=== PATIENT | male | born 1995 | race African-American/Black ===

== ENCOUNTER 2019-08-04 02:27 | Emergency (ER) | payer SELFPAY ==
[~2019-08-04] VITALS: Ht 185.4 cm; Wt 72.1 kg
[2019-08-04 05:50] LABS: *BENZODIAZEPINES SCREEN URINE NEGATIVE (NEGATIVE); *COCAINE SCREEN URINE NEGATIVE (NEGATIVE); METHADONE URINE SCREEN NEGATIVE (NEGATIVE); OPIATES URINE SCREEN PRESUMTIVE POSITIVE (NEGATIVE); PHENCYCLIDINE URINE SCREEN NEGATIVE (NEGATIVE)
[2019-08-04 05:51] LABS: *AMPHETAMINES SCREEN URINE NEGATIVE (NEGATIVE); CANNABINOID URINE SCREEN PRESUMTIVE POSITIVE (NEGATIVE)
[2019-08-04 05:52] LABS: *BARBITURATES SCREEN URINE NEGATIVE (NEGATIVE)
[2019-08-04 06:03] VITALS: BP 132/68
== END 2019-08-04 06:05 | disposition home or self-care (01) ==
LOC: ER 02:27
DX: F12.10 Cannabis abuse, uncomplicated (principal); F11.10 Opioid abuse, uncomplicated; F17.200 Nicotine dependence, unspecified, uncomplicated
CPT/HCPCS: 80305; 99283

== ENCOUNTER 2022-01-07 17:58 | Emergency (ER) | payer SELFPAY ==
[~2022-01-07] VITALS: Ht 185.4 cm; Wt 77.0 kg
[2022-01-07 20:27] VITALS: BP 129/84
[2022-01-07] MEDS ORDERED: LIDOCAINE HCL 1% 20ML VIAL (Pyxis) INJ INFIL ONE (20:30)
[2022-01-07] MEDS ORDERED: SULF1TAB48 MT (21:36)
[2022-01-07] MEDS ORDERED: IBUP-2029 MT (21:36)
== END 2022-01-07 21:58 | disposition home or self-care (01) ==
LOC: ER 17:58
DX: L02.91 Cutaneous abscess, unspecified (principal); F12.10 Cannabis abuse, uncomplicated
CPT/HCPCS: 99282; J3490; Z7610

== ENCOUNTER 2022-02-22 13:31 | Emergency (ER) | payer SELFPAY ==
[~2022-02-22] VITALS: Ht 185.4 cm; Wt 77.0 kg
[~2022-02-22 13:31] MED LIST: IBUP-2029 MT; SULF1TAB48 MT
[2022-02-22 13:36] VITALS: BP 115/70
[2022-02-22 16:35] LABS: BASOPHILS % 0.6 % (0.0-2.0); EOSINOPHILS % 7.7 % (0.0-5.0); HEMATOCRIT. 42.9 % (42.0-52.0); HEMOGLOBIN. 14.7 g/dL (14.0-18.0); LYMPHOCYTES % 34.1 % (20.0-50.0); MEAN CORPUSCULAR HEMOGLOBIN 32.4 pg (28.0-32.0); MEAN CORPUSCULAR VOLUME 94.4 fL (80.0-94.0); MEAN PLATELET VOLUME 9.1 fl (7.4-10.4); MONOCYTES % 6.7 % (2.0-8.0); NEUTROPHILS % 50.9 % (40.0-76.0); PLATELET 133 x1000/uL (130-400); RED BLOOD CELL COUNT 4.54 mill/uL (4.7-6.1); RED CELL DISTRIBUTION WIDTH 12.6 % (11.6-14.6)
[2022-02-22 16:40] LABS: CHLORIDE 106 mEq/L (98-107)
[2022-02-22 16:51] LABS: ETHANOL BLOOD < 10 mg/dL
[2022-02-22 19:22] LABS: CLARITY URINE TURBID (CLEAR); COLOR URINE YELLOW (YELLOW); KETONES URINE NEGATIVE (NEGATIVE); LEUKOCYTE ESTERASE URINE NEGATIVE (NEGATIVE); NITRITE URINE NEGATIVE (NEGATIVE); OCCULT BLOOD URINE NEGATIVE (NEGATIVE); PH URINE 7.5 (4.5-8.0); PROTEIN URINE NEGATIVE (NEGATIVE)
[2022-02-22 20:32] LABS: *AMPHETAMINES SCREEN URINE NEGATIVE (NEGATIVE); *BARBITURATES SCREEN URINE NEGATIVE (NEGATIVE); *BENZODIAZEPINES SCREEN URINE NEGATIVE (NEGATIVE); *COCAINE SCREEN URINE NEGATIVE (NEGATIVE); CANNABINOID URINE SCREEN PRESUMTIVE POSITIVE (NEGATIVE); METHADONE URINE SCREEN NEGATIVE (NEGATIVE); OPIATES URINE SCREEN NEGATIVE (NEGATIVE); PHENCYCLIDINE URINE SCREEN NEGATIVE (NEGATIVE)
== END 2022-02-22 20:34 | disposition home or self-care (01) ==
LOC: ER 13:31
DX: K40.90 Unilateral inguinal hernia, without obstruction or gangrene, not specified as recurrent (principal); F12.10 Cannabis abuse, uncomplicated
CPT/HCPCS: 36415; 76857; 76870; 80053; 80305; 80320; 81003; 85025; 93976; 99284; G0480